=== PATIENT | male | born 1955 | race Caucasian/White ===

== ENCOUNTER 2020-08-10 06:00 | Observation (INO) | payer OTHER ==
[2020-08-02 12:46] LABS: BASOPHILS % (AUTO) 1.2 % (0.0-5.0); EOSINOPHILS % (AUTO) 4.9 % (0.0-8.0); HEMATOCRIT 35.9 % (42-54); LYMPHOCYTES % (AUTO) 11.1 % (21.0-51.0); MEAN CORPUSCULAR HEMOGLOBIN 24.4 pg (27.0-33.0); MEAN CORPUSCULAR HGB CONC 29.2 g/dL (32.0-36.0); MEAN CORPUSCULAR VOLUME 83.3 fL (79-99); MONOCYTES % (AUTO) 9.6 % (3.0-13.0); NEUTROPHILS % (AUTO) 72.7 % (40.0-77.0); PLATELET COUNT (AUTO) 252 K/uL (130-400); RED BLOOD CELL COUNT(AUTO) 4.31 MIL/uL (4.50-6.20); RED CELL DISTRIBUTION WIDTH 14.3 % (11.0-15.5); WHITE BLOOD COUNT (AUTO) 8.2 K/uL (4.8-10.8)
[2020-08-02 13:01] LABS: CREATININE 2.2 mg/dL (0.5-1.5); POTASSIUM 4.7 mmol/L (3.5-5.1)
[2020-08-02 13:02] LABS: INR 1.06 (0.85-1.15); PARTIAL THROMBOPLASTIN TIME 26.8 SEC (26.3-35.5); PROTHROMBIN TIME 11.4 SEC (9.6-11.6)
--- NOTE | 2020-08-09 10:20 | NUR ---
RE: abnormal labs CALLED DR SANTAMARIA'S OFFICE AND SPOKE WITH ROSE. FAXED ABNORMAL LABS TO DC [facility]BERT MA FOR REVIEW. WILL FOLLOW UP.
[2020-08-09 12:35] VITALS: BP 125/75
[2020-08-10] VITALS (25 sets, daily range): BP systolic 113–138; BP diastolic 52–81
[~2020-08-10] VITALS: Ht 172.7 cm; Wt 113.4 kg
[~2020-08-10 06:00] MED LIST: ATOR10 PO; FOLIC ACID PO; LEVO125T11 PO; LOSA100T58 PO; MELO-108 PO; METO-391 PO; VITAMIN B1 PO
[2020-08-10] MEDS ORDERED: LACTATED RINGERS 1000ML 1,000 ML IV ONE (06:20)
[2020-08-10] MEDS ORDERED: LIDOCAINE PF 2% 5ML ABBOJECT ONE (07:17)
[2020-08-10] MEDS ORDERED: SUCCINYLCHOLINE CHLORIDE 20 MG/ML 10 ML VIAL ONE (07:17)
[2020-08-10] MEDS ORDERED: GLYCOPYRROLATE 1 MG/5 ML SYRINGE ONE (07:18)
[2020-08-10] MEDS ORDERED: ONDANSETRON HCL 4 MG/2 ML VIAL ONE (07:18)
[2020-08-10] MEDS ORDERED: DEXAMETHASONE SOD PHOSPHATE 10MG/ML 1ML VIAL ONE (07:18)
[2020-08-10] MEDS ORDERED: PROPOFOL 10 MG/ML 20ML VIAL IV ONE (07:18)
[2020-08-10] MEDS ORDERED: FENTANYL CITRATE PF 50 MCG/1 ML 2ML VIAL ONE ×5 (07:19→09:46)
[2020-08-10] MEDS ORDERED: NEOSTIGMINE 5MG/5ML SYR IV ONE (07:19)
[2020-08-10] MEDS ORDERED: MIDAZOLAM HCL 1 MG/ML 2ML VIAL ONE (07:19)
[2020-08-10] MEDS ORDERED: ROCURONIUM 10MG/1ML SYR 10 MG/ML ML ONE (07:19)
[2020-08-10] MEDS ORDERED: TRANEXAMIC ACID 1000MG/10ML ONE (07:21)
[2020-08-10] MEDS ORDERED: CEFAZOLIN SODIUM 1 GM VIAL ONE (07:29)
[2020-08-10] MEDS ORDERED: ROPIVACAINE 0.5% 5MG/ML 30ML IJ ONE (07:42)
[2020-08-10] MEDS ORDERED: EPHEDRINE SULFATE 50 MG/ML AMPULE ONE (07:54)
[2020-08-10] MEDS ORDERED: PHENYLEPHRINE HCL 10 MG/ML 1ML VIAL IV ONE (08:12)
[2020-08-10] MEDS ORDERED: KETOROLAC TROMETHAMINE 30MG/ML ONE (08:16)
[2020-08-10] MEDS: SODIUM CHLORIDE 0.9% 1000ML 1,000 ML IV SCH ×2 (10:00→20:00)
[2020-08-10] MEDS: ACETAMINOPHEN EXTRA STRENGTH 500 MG TABLET PO SCH ×2 (10:00→18:21)
[2020-08-10] MEDS ORDERED: OXYCODONE HCL 5 MG TAB PO PRN (10:00)
[2020-08-10] MEDS ORDERED: ONDANSETRON HCL 4 MG/2 ML VIAL IVP PRN (10:00)
[2020-08-10] MEDS ORDERED: MEPERIDINE-PF 25 MG/ML SYG ONE (10:23)
--- NOTE | 2020-08-10 11:00 | NUR ---
NOTE CAME IN FROM SURGERY RECOVERY ROOM AT THIS TIME. HE IS S/P RIGHT TKA. OMAR DRESSING NO LEAKS D/I. KERRY WRAP SECURED. HAS SENSATION TO BOTH FEET AND CAN WIGGLE TOES. REPORTS SOME PAIN BUT HE DOES NOT STAY AWAKE FOR ME TO ASK MORE QUESTIONS. IT WAS REPORTED TO ME FROM PACU THAT PATIENT WAS REQUESTING TO LEAVE HOME TODAY. WE WILL HAVE P.T. SEE HIM TODAY AFTER LUNCH AND EVALUATE FOR POSSIBLE DC HOME.
[2020-08-10] MEDS: OXYCODONE HCL 5 MG TAB PO PRN ×2 (14:51→23:03)
[2020-08-10] MEDS ORDERED: CEFAZOLIN SODIUM 1 GM VIAL IVP SCH (15:00)
--- NOTE | 2020-08-10 16:00 | NUR ---
NOTE PATIENT TOLERATED AMBULATION WITH USE OF WALKER AND MINIMAL ASSISTANCE FROM P.T. HE WALKED 80 FEET BUT HE DECIDED TO STAY OVERNIGHT. I INFORMED DR LOGAN ABOUT HIS DECISION TO STAY.
[2020-08-10] MEDS ORDERED: METOPROLOL SUCCINATE 50 MG TAB.SR.24H PO SCH (21:00)
[2020-08-10] MEDS: CELECOXIB 200 MG CAP PO SCH (21:14)
[2020-08-11] MEDS: ACETAMINOPHEN EXTRA STRENGTH 500 MG TABLET PO SCH ×2 (02:00→10:18)
[2020-08-11 04:02] VITALS: BP 100/64
[2020-08-11] MEDS: SODIUM CHLORIDE 0.9% 1000ML 1,000 ML IV SCH (06:00)
[2020-08-11] MEDS ORDERED: LEVOTHYROXINE 125 MCG TABLET PO SCH (07:30)
[2020-08-11 08:00] VITALS: BP 110/69
[2020-08-11] MEDS: CELECOXIB 200 MG CAP PO SCH (08:38)
[2020-08-11] MEDS: TRAMADOL HCL 50 MG TABLET PO PRN ×2 (08:39→16:19)
[2020-08-11] MEDS ORDERED: LOSARTAN 100 MG TABLET PO SCH (09:00)
[2020-08-11 12:00] VITALS: BP 107/59
--- NOTE | 2020-08-11 13:47 | NUR ---
DCP CM met with pt discussed dc plans. Pt is independent prior to admission, lives at home with a friend Josee Coreas. Pt has a walker, uses [facility] [place] for med. Pt feels safe to go back home, still drives, friend able to assist with transportation and needs as necessary. Pt verbalized Dr Lagos's office arranging outpatient therapy in [place] area. DC plan to home once stable. CM to continue to follow up. Verified home addr: [place] [address]. Addendum: 08/11/20 at 1351 by MARGO ATKINS LVN Amended: Links added.
[2020-08-11 16:00] VITALS: BP 113/65
--- NOTE | 2020-08-11 16:47 | NUR ---
PICA DRESSING CHANGED OUT ,DISCHARGE INSTRUCTION PROVIDED TO PATIENT ALONG WITH HOW TO CARE FOR DRESSING AND PICA DEVICE . LET PATIENT KNOW PER REN NAVARRO .PRESCRIPTION WAS SENT TO HIS PHARMACY FOR TRAMADOL AND ASPIRIN .. PATINT VERBILIZED UNDERSTANDING
== END 2020-08-11 17:05 | disposition home or self-care (01) ==
LOC: DAH 06:00 → DAHIP 06:01 → DAH 06:01 → 3BH 11:25
PROVIDERS: ADMIT Orthopaedic Surgery; ATTEND Orthopaedic Surgery
DX: M17.11 Unilateral primary osteoarthritis, right knee (principal); Z20.828 Contact with and (suspected) exposure to other viral communicable diseases; R11.2 Nausea with vomiting, unspecified; R26.89 Other abnormalities of gait and mobility; M21.161 Varus deformity, not elsewhere classified, right knee
CPT/HCPCS: 27447; 36415 ×2; 80048; 85025; 85610; 85730; 86850; 86900; 86901; 87641; 96361; 96374; 97039 ×3; 97116 ×3; 97161; 97530 ×2; A4215; A4221; A4222; A4223; A4649 ×6; A4663; A4930; A9272; C1776; C9803; G0378 ×19; G8978; G8979; G8980; G8981; G8982; G8983; J0330; J0690 ×2; J1100; J1885; J2001; J2175; J2250; J2370; J2405; J2704; J2710; J2795; J3010 ×5; J3490 ×3; J7120 ×2; U0003